=== PATIENT | female | born 1945 | race African-American/Black ===

== ENCOUNTER 2023-02-15 20:56 | Inpatient (IN) | payer OTHER ==
[2023-02-15 21:19] VITALS: BMI 46.1
[2023-02-15] MEDS ORDERED: ONDANSETRON 4 MG/2 ML VIAL IVPUSH ONE (22:31)
[2023-02-15] MEDS ORDERED: ONDANSETRON 4 MG/2 ML VIAL ONE (22:32)
[2023-02-15 23:00] LABS: BASO % 0.3 % (0-2.0); EOS % 1.3 % (0-4.5); HEMATOCRIT 28.7 % (32.4-45.2); LYMPH % 33.1 % (8-40); MCHC 31.3 g/dl (32.0-36.0); MEAN CELL VOLUME 83.1 fl (80-96); MEAN PLT VOLUME 9.3 fl (7.5-11.1); MONO % 11.5 % (3.8-10.2); NEUT % 53.8 % (42.8-82.8); PLATELET COUNT 202 10^3/uL (134-434); RBC 3.45 M/mm3 (3.60-5.2); RDW 18.9 % (11.6-15.6); WHITE BLOOD COUNT 6.7 K/mm3 (4.0-10.0)
[2023-02-15 23:11] LABS: INR 1.05 (0.83-1.09); PROTHROMBIN TIME (PATIENT) 12.2 SEC (9.7-13.0)
[2023-02-15 23:14] LABS: ACTIVATED PTT 28.3 SECONDS (25.2-36.5)
[2023-02-15 23:22] LABS: BLOOD UREA NITROGEN 48.9 mg/dL (7-18); CALCIUM 9.1 mg/dL (8.5-10.1)
[2023-02-15 23:23] LABS: ALBUMIN 3.1 g/dl (3.4-5.0)
[2023-02-15 23:25] LABS: CREATININE 1.8 mg/dL (0.55-1.3); PHOSPHOROUS 3.6 mg/dL (2.5-4.9)
[2023-02-15 23:27] LABS: BILIRUBIN,TOTAL 0.2 mg/dL (0.2-1); TOT PROT 7.3 g/dl (6.4-8.2)
[2023-02-15 23:28] LABS: N-TERMINAL BNP 487.6 pg/ml (5-450)
[2023-02-16] MEDS ORDERED: SODIUM CHLORIDE 0.9% 500 ML INFUS.BAG IV ONE (01:48)
[2023-02-16 07:18] LABS: BASO % 0.3 % (0-2.0); HEMATOCRIT 25.5 % (32.4-45.2); HEMOGLOBIN 8.3 GM/dL (10.7-15.3); LYMPH % 51.1 % (8-40); MCH 26.7 pg (25.7-33.7); MCHC 32.4 g/dl (32.0-36.0); MEAN CELL VOLUME 82.5 fl (80-96); MEAN PLT VOLUME 9.8 fl (7.5-11.1); MONO % 11.3 % (3.8-10.2); NEUT % 35.3 % (42.8-82.8); PLATELET COUNT 178 10^3/uL (134-434); RBC 3.09 M/mm3 (3.60-5.2); RDW 18.3 % (11.6-15.6); WHITE BLOOD COUNT 6.6 K/mm3 (4.0-10.0)
[2023-02-16 07:51] LABS: ALBUMIN 2.7 g/dl (3.4-5.0); BLOOD UREA NITROGEN 45.1 mg/dL (7-18); CALCIUM 8.6 mg/dL (8.5-10.1); MAGNESIUM 1.9 mg/dL (1.8-2.4)
[2023-02-16 07:54] LABS: CREATININE 1.6 mg/dL (0.55-1.3); PHOSPHOROUS 3.8 mg/dL (2.5-4.9)
[2023-02-16 07:56] LABS: BILIRUBIN,TOTAL 0.3 mg/dL (0.2-1); TOT PROT 6.3 g/dl (6.4-8.2)
[2023-02-16] MEDS: INSULIN SLIDING SCALE (NOVOLOG) 1 VIAL SQ SCH ×4 (09:26→21:33)
[2023-02-16] MEDS: HEPARIN NA (PORCINE) 5,000 UNITS/ML 1ML VIAL SQ SCH ×4 (09:50→21:50)
[2023-02-16] MEDS ORDERED: METOLAZONE 5 MG TABLET PO SCH (10:00)
[2023-02-16] MEDS ORDERED: ALLOPURINOL 100 MG TABLET (FP) PO SCH (10:00)
[2023-02-16] MEDS ORDERED: PATIENT'S OWN MEDICATION (NON-FORMULARY) (Dapagliflozin Propanediol 5 MG Tablet) PO SCH (10:00)
[2023-02-16] MEDS ORDERED: ISOSORBIDE MONONITRATE 60 MG TAB.SR.24H (FP) PO ONE (10:56)
[2023-02-16] MEDS ORDERED: SODIUM ZIRCONIUM CYCLOSILICATE (LOKELMA) 5 GM PACKET ONE (10:56)
[2023-02-16] MEDS ORDERED: NIFEdipine E.R. 30 MG TABLET PO ONE ×2 (10:56→10:57)
[2023-02-16] MEDS ORDERED: NIFEdipine E.R 60 MG TABLET PO ONE (10:57)
[2023-02-16] MEDS ORDERED: hydrALAZINE HCL 50 MG TABLET (FP) ONE ×2 (10:57→17:51)
[2023-02-16] MEDS: ISOSORBIDE MONONITRATE 60 MG TAB.SR.24H (FP) PO SCH (10:59)
[2023-02-16] MEDS: hydrALAZINE HCL 50 MG TABLET (FP) PO SCH ×2 (10:59→17:52)
[2023-02-16] MEDS: NIFEdipine E.R. 90 MG TABLET PO SCH (11:00)
[2023-02-16] MEDS: SODIUM ZIRCONIUM CYCLOSILICATE (LOKELMA) 5 GM PACKET PO SCH ×2 (11:00→13:15)
[2023-02-16] MEDS ORDERED: INSULIN (LEVEMIR) 100 UNITS/ML UNITS SQ ONE (17:15)
[2023-02-16] MEDS ORDERED: INSULIN (NOVOLOG) ASPART 100 UNITS/ML 10ML VIAL ONE (21:12)
[2023-02-16] MEDS: POLYETHYLENE GLYCOL (HEALTHYLAX) 3350 17 GM PACKET PO SCH (21:33)
[2023-02-16] MEDS ORDERED: ATORVASTATIN CA 80 MG TABLET (FP) PO SCH (22:00)
[2023-02-16] MEDS ORDERED: INSULIN (LEVEMIR) 100 UNITS/ML UNITS SQ SCH (22:00)
[2023-02-17] MEDS: hydrALAZINE HCL 50 MG TABLET (FP) PO SCH ×2 (01:00→09:02)
[2023-02-17] MEDS ORDERED: ONDANSETRON 4 MG/2 ML VIAL IVPUSH ONE ×3 (02:15→10:30)
[2023-02-17 04:02] VITALS: BP 137/54; PULSE 65; RESP 18; TEMP 98.2
[2023-02-17 05:02] LABS: URINE APPEARANCE CLEAR; URINE BILIRUBIN NEGATIVE (NEGATIVE); URINE COLOR YELLOW; URINE GLUCOSE (UA) NEGATIVE (NEGATIVE); URINE KETONE NEGATIVE (NEGATIVE); URINE LEUK ESTERASE NEGATIVE (NEGATIVE); URINE NITRITE NEGATIVE (NEGATIVE); URINE PROTEIN NEGATIVE (NEGATIVE); URINE UROBILINOGEN 0.2 mg/dL (0.2-1.0)
[2023-02-17] MEDS: INSULIN SLIDING SCALE (NOVOLOG) 1 VIAL SQ SCH ×2 (06:25→11:33)
[2023-02-17] MEDS: HEPARIN NA (PORCINE) 5,000 UNITS/ML 1ML VIAL SQ SCH ×2 (06:28→13:19)
[2023-02-17] MEDS: NIFEdipine E.R. 90 MG TABLET PO SCH (09:01)
[2023-02-17] MEDS: ISOSORBIDE MONONITRATE 60 MG TAB.SR.24H (FP) PO SCH (09:01)
[2023-02-17] MEDS: POLYETHYLENE GLYCOL (HEALTHYLAX) 3350 17 GM PACKET PO SCH (09:02)
[2023-02-17 09:27] LABS: BASO % 0.1 % (0-2.0); EOS % 1.2 % (0-4.5); HEMATOCRIT 28.2 % (32.4-45.2); LYMPH % 45.5 % (8-40); MCH 26.4 pg (25.7-33.7); MCHC 31.9 g/dl (32.0-36.0); MEAN CELL VOLUME 82.9 fl (80-96); MEAN PLT VOLUME 9.2 fl (7.5-11.1); MONO % 11.2 % (3.8-10.2); PLATELET COUNT 201 10^3/uL (134-434); RDW 18.6 % (11.6-15.6); RETICULOCYTES 1.26 % (0.5-1.5); WHITE BLOOD COUNT 6.3 K/mm3 (4.0-10.0)
[2023-02-17 09:52] LABS: TOT PROT 6.9 g/dl (6.4-8.2)
[2023-02-17 09:53] LABS: BILIRUBIN,TOTAL 0.3 mg/dL (0.2-1); CALCIUM 8.9 mg/dL (8.5-10.1)
[2023-02-17 09:54] LABS: ALBUMIN 2.9 g/dl (3.4-5.0); BLOOD UREA NITROGEN 38.9 mg/dL (7-18); CREATININE 1.4 mg/dL (0.55-1.3); URIC ACID 7.8 mg/dL (2.6-7.2)
[2023-02-18 16:08] LABS: GLIADIN ANTIBODY IGA 3 units (0-19); GLIADIN ANTIBODY IGG 2 units (0-19); TRANSGLUTAMINASE IGG 6 U/mL (0-5)
== END 2023-02-17 17:05 | disposition home or self-care (01) | DRG 445 ==
LOC: JER 20:56 → JERBED 02-16 03:08 → OBSVTOIN 02-16 04:57 → JERBED 02-16 20:02 → J6S 02-16 20:37
PROVIDERS: ADMIT Internal Medicine; ATTEND Nurse Practitioner Acute Care
DX: K80.20 Calculus of gallbladder without cholecystitis without obstruction (principal); I13.0 Hypertensive heart and chronic kidney disease with heart failure and stage 1 through stage 4 chronic kidney disease, or unspecified chronic kidney disease; N17.9 Acute kidney failure, unspecified; E78.5 Hyperlipidemia, unspecified; N28.1 Cyst of kidney, acquired; D64.9 Anemia, unspecified; K57.90 Diverticulosis of intestine, part unspecified, without perforation or abscess without bleeding; N18.1 Chronic kidney disease, stage 1; E11.22 Type 2 diabetes mellitus with diabetic chronic kidney disease; E11.40 Type 2 diabetes mellitus with diabetic neuropathy, unspecified; I50.9 Heart failure, unspecified; I25.10 Atherosclerotic heart disease of native coronary artery without angina pectoris; K59.00 Constipation, unspecified; H40.9 Unspecified glaucoma; Z90.81 Acquired absence of spleen
CPT/HCPCS: 0241U-QW; 36415; 71045-TC-FY; 74176-TC; 76705-TC; 80053; 81003; 82550; 82553; 82728; 82784; 82962; 83010; 83516; 83540; 83550; 83690; 83735; 83880; 84100; 84155; 84165; 84484; 84550; 85025; 85045; 85610; 85730; 86140; 86334; 87086; 93005; 93010; 99285-25; G0378; J1644